=== PATIENT | female | born 1950 | race Two or more races ===

== ENCOUNTER 2020-12-29 07:59 | Outpatient (CLI) | payer OTHER | END 2020-12-29 08:15 | disposition home or self-care (01) | LOC: RAD 07:59 | PROVIDERS: ATTEND General Practice | DX: J44.1 Chronic obstructive pulmonary disease with (acute) exacerbation (principal) ==

== ENCOUNTER 2023-10-13 09:41 | Outpatient (CLI) | payer OTHER | END 2023-10-13 09:42 | disposition home or self-care (01) | LOC: NUCLEAR 09:41 | DX: M79.604 Pain in right leg (principal) ==